=== PATIENT | male | born 2000 | race Two or more races ===

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

== ENCOUNTER 2022-09-26 09:34 | Emergency (ER) | payer MEDICAID ==
[2022-09-26 10:02] VITALS: BP 142/64
[2022-09-26 11:36] LABS: B. PARAPERTUSSIS- RESP PCR PAN NOT DETECTED; B. PERTUSSIS- RESP PCR PANEL NOT DETECTED; C. PNEUMONIAE- RESP PCR PANEL NOT DETECTED; CORONAVIRUS 229E-RESP PCR NOT DETECTED; CORONAVIRUS HKU1-RESP PCR NOT DETECTED; CORONAVIRUS NL63-RESP PCR NOT DETECTED; CORONAVIRUS OC43-RESP PCR NOT DETECTED; HUMAN METAPNEUMOVIRUS NOT DETECTED; INFLUENZA A- RESP PCR PANEL NOT DETECTED; M. PNEUMONIAE- RESP PCR PANEL NOT DETECTED; RHINOVIRUS/ENTEROVIRUS NOT DETECTED; SARS-CoV-2 -RESP PCR PANEL NOT DETECTED
[2022-09-26 11:37] LABS: INFLUENZA B - RESP PCR PANEL NOT DETECTED; PARAINFLUENZA VIRUS 1 NOT DETECTED; PARAINFLUENZA VIRUS 2 NOT DETECTED; PARAINFLUENZA VIRUS 3 NOT DETECTED; PARAINFLUENZA VIRUS 4 NOT DETECTED; RSV- RESP PCR PANEL DETECTED
--- NOTE | 2022-09-26 12:49 | ED Physician Documentation ---
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 He has been sick for 3 days with body aches, severe sinus pain, headache, chills and cough. Review of Systems Constitutional: reports: Chills, Myalgias, Fatigue. denies: Fever Ears: denies: Ear pain Nose: reports: Rhinorrhea / runny nose, Congestion Throat: reports: Sore throat Respiratory: reports: Cough. denies: Dyspnea PD PAST MEDICAL HISTORY - Past Medical History Endocrine/Autoimmune: None - Past Surgical History Past Surgical History: No - Present Medications Home Medications: Ambulatory Orders Medication Instructions Recorded Confirmed Amoxicillin 500 mg PO TID #30 cap 09/26/22 Ibuprofen [Motrin] 600 mg PO Q6H PRN #30 tab 09/26/22 Loperamide [Imodium] 2 mg PO QID PRN #10 cap 09/26/22 - Allergies Allergies/Adverse Reactions: Allergies Allergy/AdvReac Type Severity Reaction Status Date / Time No Known Drug Allergies Allergy Verified 09/26/22 10:03 - Social History Does the pt smoke?: No Smoking Status: Never smoker PD ED PE NORMAL - Vitals Vital signs reviewed: Yes - General General: Alert and oriented X 3, No acute distress - HEENT HEENT: PERRL, EOMI, Ears normal, Pharynx benign, Other (Tenderness of both maxillary sinuses) - Neck Neck: Supple, no meningeal sign, No bony TTP - Cardiac Cardiac: RRR, No murmur - Respiratory Respiratory: No respiratory distress, Clear bilaterally - Abdomen Abdomen: Soft, Non tender - Back Back: No CVA TTP, No spinal TTP - Derm Derm: Normal color, Warm and dry - Extremities Extremities: No edema, No calf tenderness / cord - Neuro Neuro: Alert and oriented X 3, Normal speech Results - Vitals Vitals: Vital Signs - 24 hr 09/26/22 09:55 Temperature 36.9 C Heart Rate 72 Respiratory 14 Rate Blood Pressure 142/64 H O2 Saturation 100 Oxygen O2 Source Room air - Labs Labs: Laboratory Tests 09/26/22 10:03 Nasal Adenovirus (PCR) NOT DETECTED Nasal B. parapertussis DNA (PCR) NOT DETECTED Nasal Coronavir 229E PCR NOT DETECTED Nasal Coronavir HKU1 PCR NOT DETECTED Nasal Coronavir NL63 PCR NOT DETECTED Nasal Coronavir OC43 PCR NOT DETECTED Nasal Enterovir/Rhinovir PCR NOT DETECTED Nasal Influenza B PCR NOT DETECTED Nasal Influenza A PCR NOT DETECTED Nasal Parainfluen 1 PCR NOT DETECTED Nasal Parainfluen 2 PCR NOT DETECTED Nasal Parainfluen 3 PCR NOT DETECTED Nasal Parainfluen 4 PCR NOT DETECTED Nasal RSV (PCR) DETECTED A Nasal B.pertussis DNA PCR NOT DETECTED Nasal C.pneumoniae (PCR) NOT DETECTED [place] Human Metapneumo PCR NOT DETECTED Nasal M.pneumoniae (PCR) NOT DETECTED Nasal SARS-CoV-2 (PCR) NOT DETECTED PD MEDICAL DECISION MAKING - ED course ED course: 22-year-old gentleman who was positive for RSV and may have a superimposed sinus infection based on symptoms and will treat for same. He also has some diarrhea which we will treat with Imodium. Departure - Departure Disposition: 01 Home, Self Care Clinical Impression: Sinusitis Qualifiers: Sinusitis location: maxillary Chronicity: acute Recurrence: non-recurrent Qualified Code(s): J01.00 - Acute maxillary sinusitis, unspecified Condition: Good Record reviewed to determine appropriate education?: Yes Instructions: ED Sinusitis Abx Tx Prescriptions: Amoxicillin 500 mg PO TID #30 cap Loperamide [Imodium] 2 mg PO QID PRN #10 cap PRN Reason: Diarrhea Ibuprofen [Motrin] 600 mg PO Q6H PRN #30 tab PRN Reason: Pain Print Language: Czech Comments: Lo vieron hoy por alyssa enfermedad viral conocida phil RSV con alyssa infeccin sinusal superpuesta. Para eso te estoy recetando un antibitico, algo para la diarrea y algo para los heavenly del cuerpo. Llame a ma mdico para concertar alyssa adrian de seguimiento, programe la prxima adrian disponible. Mientras tanto, regrese en cualquier momento si empeora o si se desarrollan nuevos sntomas.
== END 2022-09-26 12:52 | disposition home or self-care (01) ==
LOC: ED 09:34
DX: J01.00 Acute maxillary sinusitis, unspecified (principal); B97.4 Respiratory syncytial virus as the cause of diseases classified elsewhere; R19.7 Diarrhea, unspecified
CPT/HCPCS: 87633; 99283

== ENCOUNTER 2023-03-14 22:53 | Outpatient (CLI) | payer MEDICAID | END 2023-03-14 22:54 | disposition EMS.NT | LOC: EMS 22:53 | DX: Z03.89 Encounter for observation for other suspected diseases and conditions ruled out (principal) ==